=== PATIENT | female | born 1945 | race Caucasian/White ===

== ENCOUNTER → 2018-01-14 | Outpatient (CLI) | payer MEDICARE ==
[~2018-01-14] MED LIST: ADVIL200 MG PO; ALDACTONE 25MG25 M1 PO; CLONIDINE0.1 MG PO; DOXAZOSIN4 MG PO; EXFORGE 10/320 PO; METOPROLOL50 MG PO; VYTORIN 10 MG-81 TAB PO; ZAROXOLYN5 MG PO
== END ==
LOC: COL.RAD 10:36
DX: K76.0 Fatty (change of) liver, not elsewhere classified (principal); K44.9 Diaphragmatic hernia without obstruction or gangrene; C50.919 Malignant neoplasm of unspecified site of unspecified female breast
CPT/HCPCS: Q9967

== ENCOUNTER → 2020-11-10 | Outpatient (CLI) | payer MEDICARE | LOC: COL.RAD 14:00 | DX: R91.8 Other nonspecific abnormal finding of lung field (principal); J98.4 Other disorders of lung; K44.9 Diaphragmatic hernia without obstruction or gangrene; K76.0 Fatty (change of) liver, not elsewhere classified ==

== ENCOUNTER → 2020-12-02 | Outpatient (CLI) | payer MEDICARE | LOC: MC.RAD 09:00 | DX: N60.41 Mammary duct ectasia of right breast (principal); N64.4 Mastodynia; Z85.3 Personal history of malignant neoplasm of breast ==

== ENCOUNTER → 2020-12-03 | Outpatient (CLI) | payer MEDICARE | LOC: COL.RAD 10:46 | DX: K44.9 Diaphragmatic hernia without obstruction or gangrene (principal); K22.8 Other specified diseases of esophagus; N60.41 Mammary duct ectasia of right breast; N64.4 Mastodynia ==

== ENCOUNTER → 2021-07-18 | Outpatient (CLI) | payer MEDICARE | LOC: MC.RAD 08:49 | DX: N63.20 Unspecified lump in the left breast, unspecified quadrant (principal) ==